=== PATIENT | male | born 1965 ===

== ENCOUNTER 2022-03-11 00:26 | Emergency (ER) | payer OTHER ==
[2022-03-11 02:18] VITALS: BP 142/82
== END 2022-03-11 07:47 | disposition left against medical advice (07) ==
LOC: ED 00:26
DX: T16.1XXA Foreign body in right ear, initial encounter (principal); Z53.21 Procedure and treatment not carried out due to patient leaving prior to being seen by health care provider; X58.XXXA Exposure to other specified factors, initial encounter; Y93.89 Activity, other specified; Y92.89 Other specified places as the place of occurrence of the external cause; Y99.8 Other external cause status